=== PATIENT | female | born 1965 | race Caucasian/White ===

== ENCOUNTER 2018-02-18 16:59 | Emergency (ER) | payer OTHER ==
[~2018-02-18] VITALS: Ht 121.9 cm; Wt 67.1 kg
[2018-02-18] MEDS ORDERED: FORTAMET1000 MG (17:07)
[2018-02-18] MEDS ORDERED: COZAAR25 MG (17:07)
[2018-02-18] MEDS ORDERED: SYNTHROID137 MCG (17:07)
[2018-02-18] MEDS ORDERED: ONGLYZA2.5 MG (17:07)
== END 2018-02-18 23:28 | disposition home or self-care (01) ==
LOC: ER 16:59
DX: R31.0 Gross hematuria (principal); M54.89 Other dorsalgia; R10.9 Unspecified abdominal pain